=== PATIENT | female | born 1945 | race Caucasian/White ===

== ENCOUNTER 2024-03-26 16:09 | Inpatient (IN) | payer MEDICARE, MEDICAID, SELFPAY ==
--- NOTE | 2024-03-26 16:13 | XRR_ITS ---
PROCEDURE INFORMATION: Exam: XR Right Hip Exam date and time: 03/26/2024 5:14 PM Age: 79 years old Clinical indication: Right hip; Patient HX: RT hip pain post fall TECHNIQUE: Imaging protocol: Radiologic exam of the right hip. Views: 1 view hip with pelvis when performed. COMPARISON: No relevant prior studies available. FINDINGS: Bones/joints: Subcapital right hip fracture with foreshortening. Soft tissues: Unremarkable. XR/XR hip RT 2-3V wo/w pel* [id number] IMPRESSION: Subcapital right hip fracture with foreshortening.
[2024-03-26 16:15] VITALS: BP 141/61; PULSE 68; RESP 18; TEMP 36.4; O2SAT 100; BMI 38.2
--- NOTE | 2024-03-26 16:34 | ED_ITS ---
HPI - Fall 2 General: Chief Complaint: Fall Stated Complaint: right hip pain s/p fall Time Seen by Provider: 03/26/24 16:11 History of Present Illness: 79-year-old female who presents emergenc y room by ambulance with right hip pain after fall. She says she slipped on some water and fell onto her right hip. She did not hit her head. She has no other injuries. She is complaining of pain in the right hip and severe pain with any sort of movement. Appears to have some shortening and rotation of that leg compared to the left. Neurovascularly intact. No altered mental status. No chest pain. No focal motor deficits. No abdominal pain. No vomiting. Related Data Allergies Allergy/AdvReac Type Severity Reaction Status Date / Time codeine Allergy Unknown Verified 03/26/24 16:15 Review of Systems 2 Narrative: Constitutional symptoms: Negative except as documented in HPI. Skin symptoms: Negative except as documented in HPI. Eye symptoms: Negative except as documented in HPI. ENMT symptoms: Negative except as documented in HPI. Respiratory symptoms: Negative except as documented in HPI. Cardiovascular symptoms: Negative except as documented in HPI. Gastrointestinal symptoms: Negative except as documented in HPI. Genitourinary symptoms: Negative except as documented in HPI. Musculoskeletal symptoms: Negative except as documented in HPI. Neurologic symptoms: Negative except as documented in HPI. Psychiatric symptoms: Negative except as documented in HPI. Endocrine symptoms: Negative except as documented in HPI. Physical Exam 2 Narrative: EXAM NARRATIVE: General: Alert, no acute distress. Skin: Warm, dry. Head: Normocephalic, atraumatic. Neck: Supple, trachea midline. Eye: Extraocular movements are intact. Ears, nose, mouth and throat: mucosa moist. Cardiovascular: Regular, Normal peripheral perfusion. Respiratory: Lungs are clear to auscultation, respirations are non-labored, breath sounds are equal, Symmetrical chest wall expansion. Gastrointestinal: Soft, Nontender, Non distended Musculoskeletal: Shortening and rotation of the right leg. Severe pain with any movement of the right leg and the right hip. Neurological: Alert and oriented, No focal neurological deficit observed. Psychiatric: Cooperative, appropriate mood & affect. Course 2 Vital Signs: Vital signs: Vital Signs Temperature 97.5 F L 03/26/24 16:15 Pulse Rate 74 03/26/24 16:54 Respiratory Rate 18 03/26/24 16:54 Blood Pressure 163/54 01/05/25 16:54 Pulse Oximetry 99 03/26/24 16:54 Oxygen Delivery Me thod Room Air 03/26/24 16:54 MDM - Fall Medical Decision Making X-ray of the right hip and pelvis. Impacted femoral neck fracture. No obvious pelvic fractures. This was reviewed and interpreted by myself the emergency room physician. I also reviewed the radiology report. Chest x-ray: No acute process. No infiltrate. No pneumothorax. This was reviewed and interpreted by myself the emergency room physician. I also reviewed the radiology report. Presurgical workup was initiated including an EKG and basic lab work with coags and urinalysis. A Bates catheter was placed. Consultation: I spoke with Dr. Bee who recommends admission to the hospitalist service and she will consult and see the patient and plan on surgery Consultation: I spoke with the hospitalist on-call who is agreed to admission. Assessment and plan: Hip fracture Fall ?Dilaudid for pain. Bates catheter placed. -I discussed the patient with the hospitalist on-call who is admitting the patient. - Discussed findings and plan with patient. Answered any questions. - All laboratory values were reviewed and interpreted personally by myself, the ER physician - All imaging was reviewed and interpreted personally by myself, the ER physician. - Evaluation and treatment of this problem were appropriate in the emergency setting Lab Data 03/26/24 17:58 Radiology Impressions Hip/Pelvis X-Ray 03/26/24 16:13 IMPRESSION: Subcapital right hip fracture with foreshortening. Chest X-Ray 03/26/24 17:35 IMPRESSION: No acute findings. Laboratory Results Sodium 139 mmol/L (136-145) 03/26/24 17:58 Potassium 4.4 mmol/L (3.5-5.1) 03/26/24 17:58 Chloride 104 mmol/L (98-107) 03/26/24 17:58 Carbon Dioxide 25 mmol/L (22-29) 03/26/24 17:58 Anion Gap 14.4 (5-19) 03/26/24 17:58 BUN 18 mg/dL (8-23) 03/26/24 17:58 Creatinine 0.6 mg/dL (0.5-0.9) 03/26/24 17:58 GFR Calculation Not Reportable 03/26/24 17:58 Glucose 117 mg/dL (65-115) H 03/26/24 17:58 Calculated Osmolality 291 mOsm/kg (285-295) 03/26/24 17:58 Calcium 9.0 mg/dL (8.5-10.5) 03/26/24 17:58 Total Bilirubin 0.5 mg/dL (0.15-1.2) 03/26/24 17:58 AST 25 U/L (0-32) 03/26/24 17:58 ALT 15 U/L (0-33) 03/26/24 17:58 Alkaline Phosphatase 145 U/L (35-105) H 03/26/24 17:58 Total Protein 7.1 g/dL (6.6-8.7) 03/26/24 17:58 Albumin 3.8 g/dL (3.5-5.2) 03/26/24 17:58 Globulin 3.3 g/dL (1.3-4.6) 03/26/24 17:58 All radiology interpretation(s) finalized by discharge Discharge Plan Discharge Patient Disposition: Admitted As Inpatient Clinical Impression: Closed hip fracture Condition: Stable Coding Level of Care Code ED Director [place] for Flo Jacobson
[2024-03-26 16:54] VITALS: BP 163/54; PULSE 74; RESP 18; O2SAT 99
[2024-03-26] MEDS: ondansetron 2 mg/ML SDV 2 mL 4 MG IVP (17:07)
[2024-03-26] MEDS: HYDROmorphone 1 mg/mL INJ 1 mL 0.5 MG IVP (17:07)
--- NOTE | 2024-03-26 17:35 | XRR_ITS ---
PROCEDURE INFORMATION: Exam: XR Chest Exam date and time: 03/26/2024 5:19 PM Age: 79 years old Clinical indication: Pre-operative exam; Respiratory screening exam; Patient HX: RT hip FX; Pre op high risk procedure TECHNIQUE: Imaging protocol: Radiologic exam of the chest. Views: 1 view. COMPARISON: No relevant prior studies available. FINDINGS: Lungs: Unremarkable. No consolidation. Pleural spaces: Unremarkable. No pleural effusion. No pneumothorax. Heart/Mediastinum: Unremarkable. No cardiomegaly. Bones/joints: Unremarkable. XR/XR chest 1V [id number] IMPRESSION: No acute findings.
--- NOTE | 2024-03-26 17:57 | ECG_ITS ---
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 Measurements Intervals [place] Rate: 75 P: 66 MO: 151 QRS: 96 QRSD: 99 T: 17 QT: 384 QTc: 431 Interpretive Statements SINUS RHYTHM WITH MARKED SINUS ARRHYTHMIA BORDERLINE RIGHT AXIS DEVIATION [QRS AXIS > 90] NONSPECIFIC ST & T-WAVE ABNORMALITY No previous ECG available for comparison Electronically Signed On 03-27-2024 17:12:02 PROJECT ARCHITECT by Sim Alex M.D. [email or web address]
[2024-03-26 18:21] LABS: Alanine Aminotransferase 15 U/L (0-33); Albumin Level 3.8 g/dL (3.5-5.2); Alkaline Phosphatase 145 U/L (35-105); Blood Urea Nitrogen 18 mg/dL (8-23); Carbon Dioxide 25 mmol/L (22-29); Chloride 104 mmol/L (98-107); Globulin 3.3 g/dL (1.3-4.6); Glucose 117 mg/dL (65-115); Osmolality Calculated 291 mOsm/kg (285-295); Sodium 139 mmol/L (136-145); Total Bilirubin 0.5 mg/dL (0.15-1.2); Total Protein 7.1 g/dL (6.6-8.7)
[2024-03-26 18:22] LABS: Anion Gap 14.4 (5-19); Aspartate Amino Transferase 25 U/L (0-32); Potassium 4.4 mmol/L (3.5-5.1)
--- NOTE | 2024-03-26 19:02 | P.HP_ITS ---
Providers/Chief Complaint 2 Chief Complaint: right hip pain s/p fall History of Present Illness Omayra Alfredo is a 79 year old female who has not seen a doctor in a long time stating that she does not like to see a doctor, does not like to take medications, she is physically active taking care of 100 continue PICC, multiple rabbits, cats and 1 dog, stating that she is very active all day, never had any history of diabetes, coronary stents, stroke, she is complaining of lower back pain and knee pain otherwise no other medical issues presenting after falling in her kitchen. Patient is stating that she probably fell secondary to slippery floor/water on the kitchen floor. She fell on the concrete slab. She is denying palpitation, chest pain, she is hypertensive, hemodynamically stable currently on room air. Bates catheter has been placed. Review of Systems 2 Const: Denies: fever(s) Eyes: Denies: change in vision ENMT: Denies: throat pain Card: Denies: chest pain Resp: Denies: dyspnea GI: Denies: abdominal pain Musc: Reports: back pain and extremity pain Medications/Allergies Allergies Allergy/AdvReac Type Severity Reaction Status Date / Time codeine Allergy Unknown Verified 03/26/24 16:15 PFSH Acute 2 PFSH: Medical History No pertinent past medical history Surgical History No pertinent past surgical history Vitals/I&O/Wt Last Vital Signs Temp 97.5 F L 03/26/24 16:15 Pulse 74 03/26/24 16:54 Resp 18 03/26/24 16:54 BP 163/54 03/26/24 16:54 Pulse Ox 99 03/26/24 16:54 O2 Del Method Room Air 03/26/24 16:54 03/26/24 03/26/24 03/26/24 06:59 14:59 22:59 Intake Total 0 / 0 Balance 0 / 0 Weight last 48 hrs Weight 104.326 kg Physical Exam 2 Narrative: Patient is laying supine Labial emotionally stating that she is missing her 200 animals and she is worried about the care Stating that she does not like hospitals doctors or medications Hypertensive No active pain Bates cath in place Low extremity nonpitting edema Abdomen soft S1, S2 GCS 15 nonfocal neuroexam Urinary Catheter Management: Bates: Cath Placed During This Visit: yes Reason for Continuing Indwelling Catheter: Other Urinary Catheter Date of Insertion: 03/26/24 Urinary Catheter Time of Insertion: 18:59 Data 03/26/24 19:17 03/26/24 17:58 A&P Assessment and plan (1) Closed hip fracture: (2) Hypertension: Plan Right hip fracture Ground-level fall Mechanical fall Patient has not seen a PCP in 6 years Add Motifene for hypertension Check D-dimer hemoglobin A1c, B12 and TSH Will request echo Patient is physically active stating that she takes care of [address] Baxter is planning to intervene on Wednesday I will let her have diet tonight and give her DVT prophylaxis Full code Cardiac diet Bates catheter in place Attestations 2 Medical Necessity Statement*: More than 2 midnights anticipated Diagnoses Closed hip fracture S72.009A Hypertension I10
[2024-03-26 19:08] LABS: Bilirubin Urine Negative (Negative); Blood Urine Negative (Negative); Glucose Urine UA Negative (Normal); Ketones Urine Trace (Negative); Leukocyte Esterase Urine Negative (Negative); Nitrate Urine Negative (Negative); Protein Urine Trace (Negative); Urine Appearance Clear (CLEAR); Urine Color Dark Yellow (Yellow)
[2024-03-26 19:11] LABS: Bacteria Urine None Seen /hpf; Hyaline Casts Urine 9.91 /lpf; RBC Urine 0-2 /hpf (0-2); Squamous Epithelial Cell Urine 0-5 /hpf (0-5); WBC Urine 0-5 /hpf (0-5)
[2024-03-26 19:28] LABS: Basophils % 0.3 %; Eosinophils % 0.2 %; Lymphocytes # 1.1 10^3/uL (0.8-4.8); Lymphocytes % 9.2 %; Mean Corpuscular HGB Conc 30.7 g/dL (30-55); Mean Corpuscular Hemoglobin 27.2 pg (27-33); Mean Corpuscular Volume 88.4 fl (85-98); Mean Platelet Volume 8.8 fL (7.4-10.4); Monocytes # 0.7 10^3/uL (0.2-0.9); Monocytes % 5.6 %; Neutrophils # 9.91 10^3/uL (1.8-7.7); Neutrophils % 84.2 %; Nucleated Red Blood Cells % 0 %; Platelet Count 229 10^3/cmm (157-399); Red Blood Count 4.64 10^6/uL (3.85-5.65); Red Cell Distribution Width 13.9 % (12.1-15.1); White Blood Count 11.77 10^3/uL (3.29-11.43)
[2024-03-26 19:38] LABS: Amorphous Sediment Urine TRACE /hpf; Mucus Urine 3+ /hpf; UA Slide Review UA Slide Review Perf
[2024-03-26 19:47] LABS: INR 1.02 (0.8-1.2)
[2024-03-26 20:06] LABS: Estmated Average Glucose 108; Hemoglobin A1C 5.4 % (4.0-6.0)
[2024-03-26 20:11] LABS: Partial Thromboplastin Time 26.6 SECONDS (23.9-36.7)
[2024-03-26 20:17] LABS: D Dimer 12.48 ug/mLFEU (0-0.59)
[2024-03-26 20:22] LABS: Thyroid Stimulating Hormone 3.12 uIU/mL (0.27-4.20); Vitamin B12 203 pg/mL (232-1245)
--- NOTE | 2024-03-26 20:30 | P.CONIM_ITS ---
Providers/Reason For Consult 2 Consulting Physician/Specialty*: Bernice Bee MD Reason for Consult*: Displaced right subcapital hip fracture Attending Physician: Michelle Grider MD Primary Care Provider: Dr. Humaira Mckee History of Present Illness History of Present Illness Omayra Alfredo is a 79 year old female who was brought to the emergency department by ambulance. She had right hip pain after a fall in her kitchen when she slipped on water and fell directly onto her right hip. She had severe pain in the right hip and inability to ambulate. The leg was also shortened and externally rotated. She was neurologically intact after the fall. She denied any reason for the fall other than a slip in water. Upon presentation and x- ray, the patient was found to have a displaced subcapital right hip fracture. Review of Systems 2 Narrative: Constitutional symptoms: Negative except as documented in HPI. Skin symptoms: Negative except as documented in HPI. Eye symptoms: Negative except as documented in HPI. ENMT symptoms: Negative except as documented in HPI. Respiratory symptoms: Negative except as documented in HPI. Cardiovascular symptoms: Negative except as documented in HPI. Gastrointestinal symptoms: Negative except as documented in HPI. Genitourinary symptoms: Negative except as documented in HPI. Musculoskeletal symptoms: Negative except as documented in HPI. Neurologic symptoms: Negative except as documented in HPI. Psychiatric symptoms: Negative except as documented in HPI. Endocrine symptoms: Negative except as documented in HPI. Const: Denies: fever(s) Eyes: Denies: change in vision ENMT: Denies: throat pain Card: Denies: chest pain Resp: Denies: dyspnea GI: Denies: abdominal pain Musc: Reports: back pain and extremity pain Medications/Allergies Home Medications Medication Instructions Recorded Confirmed Last Taken Type No Known Home Medications 03/27/24 03/27/24 Unknown History Allergies Allergy/AdvReac Type Severity Reaction Status Date / Time codeine Allergy Unknown Verified 03/26/24 16:15 Current Medications Generic Name Dose Route Start Last Admin Trade Name Freq PRN Reason Stop Dose Admin Enoxaparin Sodium 40 mg 03/26/24 19:35 03/26/24 21:08 Enoxaparin 40 Mg/0.4 Ml Syringe SUBCUT 40 mg DAILY LESLEY Administration Morphine Sulfate 15 mg 03/26/24 19:30 03/26/24 21:08 Morphine Ir 15 Mg Tablet PO 15 mg Q6H PRN Administration MODERATE PAIN PFSH Acute 2 PFSH: Medical History No pertinent past medical history Surgical History No pertinent past surgical history Vitals/I&O/Wt Last Vital Signs Temp 97.5 F L 03/26/24 16:15 Pulse 74 03/26/24 16:54 Resp 16 03/26/24 21:08 BP 163/54 03/26/24 16:54 Pulse Ox 99 03/26/24 21:08 O2 Del Method Room Air 03/26/24 22:44 03/26/24 03/26/24 03/27/24 14:59 22:59 06:59 Intake Total 480 / 480 Output Total 400 / 400 Balance 80 / 80 Weight last 48 hrs Weight 202 lb 9.6 oz Weight 230 lb Physical Exam 2 Const: COMMON NORMALS: no acute distress, average body habitus, patient oriented x3 and alert GENERAL APPEARANCE: cooperative and comfortable O RIENTATION/CONSCIOUSNESS: Yes awake HENMT: COMMON NORMALS: normocephalic and atraumatic HEAD & SCALP: n ormocephalic and atraumatic Eye: GENERAL EYE: appearance normal, both eyes and all related structures Chest: COMMONS NORMALS: normal inspection of the chest Resp: COMMON NORMALS: normal respiratory effort EFFORT & INSPECTION: Yes able to speak in complete sentences and Yes symmetric chest movement Extremity: RIGHT LOWER EXTREMITY: Yes hip joint (There is no significant ecchymosis or swelling) Right hip: Yes palpation (Tenderness to palpation), Yes ROM (Not evaluated) and Yes neurovascular exam (Intact distally) Neuro: COMMON NORMALS: patient oriented x3 SENSORIUM/ORIENTATION: Yes alert Psych: COMMON NORMALS: mental status grossly normal APPEARANCE: Yes grossly normal ATTITUDE: Yes calm and Yes engaged ATTENTION/CONCENTRATION: Yes attention grossly intact Skin: COMMON NORMALS: no rashes or lesions noted GENERAL SKIN EXAM: no rashes or lesions noted Urinary Catheter Management: Bates: Cath Placed During This Visit: yes Reason for Continuing Indwelling Catheter: Other Urinary Catheter Date of Insertion: 03/26/24 Urinary Catheter Time of Insertion: 18:59 Data 03/27/24 03:11 03/27/24 03:11 Xray Ortho: My impression: I have personally evaluated the patient's imaging studies. These include an AP pelvis as well as isolated AP and lateral of the patient's right hip. AP pelvis demonstrates shortening of the right lower extremity with a subcapital displaced right hip fracture. There is no other significant pathology visualized. Isolated AP demonstrates significant superior displacement of the femoral shaft. The lateral is compromised by the patient's body habitus. A&P Assessment and plan (1) Subcapital fracture of right hip: Patient presented to the emergency department after slip and fall in water at home. At time of presentation to the emergency department, she was unable to ambulate and complained of significant right hip pain. The leg was shortened and externally rotated consistent with hip fracture. I have personally reviewed the imaging studies and these demonstrate a displaced shortened angulated right subcapital hip fracture. Patient was seen following admission. Discussion was undertaken with the patient regarding the appropriate treatment for this fracture. She is anxious to get home to take care of her animals, but I have advised her that she will need to have some restrictions following the surgical procedure. Risks and complications of surgery were discussed with her. Plans are made for her surgery March 28. She is undergoing further optimization with the medical service. Qualifiers: Encounter type: initial encounter Fracture type: closed Qualified Code(s): S72.011A - Unspecified intracapsular fracture of right femur, initial encounter for closed fracture Consult Attestations 2 Medical Necessity Statement: Per hospitalist team Coding Level of Care Code Acute Code for [facility] Diagnoses Closed subcapital fracture of right femur, initial encounter S72.011A Encounter type: initial encounter Fracture type: closed
[2024-03-26 21:08] VITALS: RESP 16; O2SAT 99
[2024-03-26] MEDS: enoxaparin 40 mg/0.4 mL Syringe SUBCUT (21:08)
[2024-03-26] MEDS: morphine IR 15 mg Tablet PO (21:08)
--- NOTE | 2024-03-26 21:38 | CTR_ITS ---
PROCEDURE INFORMATION: Exam: CTA Chest With Contrast Exam date and time: 03/26/2024 10:25 PM Age: 79 years old Clinical indication: Abnormal findings; Abnormal diagnostic tests; Elevated d-dimer; Shortness of breath; Patient HX: SOB with hypoxia. Dimer of 12.5. Patient sustained acute hip fracture earlier today. TECHNIQUE: Imaging protocol: Computed tomographic angiography of the chest with contrast. Exam focused on the arteries. 3D rendering (Not supervised by radiologist): MIP and/or 3D reconstructed images were created by the technologist. Radiation optimization: All CT scans at this facility use at least one of these dose optimization techniques: automated exposure control; mA and/or kV adjustment per patient size (includes targeted exams where dose is matched to clinical indication); or iterative reconstruction. Contrast material: OMNI 350; Contrast volume: 78 ml; Contrast route: INTRAVENOUS (IV); COMPARISON: CR XR chest 1V [id number] 03/26/2024 5:19 PM RADIATION DOSE METRICS: Total DLP (mGy-cm): 394.67 FINDINGS: Pulmonary arteries: There is no evidence of filling defects within the pulmonary arterial circulation to suggest pulmonary embolism. Aorta: There is some atherosclerotic calcification of the descending thoracic aorta. There is no thoracic aortic aneurysm or dissection. Lungs: There is a calcified granuloma in the left lower lobe. No acute infiltrate is identified there is mild dependent atelectasis at the lung bases. Pleural spaces: Unremarkable. No pneumothorax. No pleural effusion. Heart: Unremarkable. No cardiomegaly. No pericardial effusion. Coronary arteries: There is mild atherosclerotic calcification of the coronary arteries. Lymph nodes: There are calcified hilar and mediastinal lymph nodes in keeping with old granulomatous disease. There are small paratracheal lymph nodes but no adenopathy. Bones/joints: The thoracic spine demonstrates moderate degenerative changes at multiple levels. There is no evidence of acute fracture. Soft tissues: Unremarkable. CT/CT angio chest PE protcl [id number] IMPRESSION: No evidence of pulmonary embolism.
[2024-03-26] MEDS: iohexol 350 mg/mL 500 mL Btl (per mL) IV (22:28)
[2024-03-27] VITALS (7 sets, daily range): BP systolic 103–129; BP diastolic 48–74; PULSE 68–74; RESP 16–22; TEMP 36.8–37.1; O2SAT 92–95
[2024-03-27 04:26] LABS: Basophils % 0.5 %; Eosinophils # 0.1 10^3/uL (0.0-0.8); Eosinophils % 0.7 %; Hematocrit 39.3 % (36-47); Lymphocytes # 1.8 10^3/uL (0.8-4.8); Lymphocytes % 23.1 %; Mean Corpuscular Hemoglobin 27.6 pg (27-33); Mean Corpuscular Volume 88.9 fl (85-98); Mean Platelet Volume 9.8 fL (7.4-10.4); Monocytes # 0.6 10^3/uL (0.2-0.9); Monocytes % 8.5 %; Neutrophils # 5.05 10^3/uL (1.8-7.7); Neutrophils % 66.8 %; Nucleated Red Blood Cells % 0 %; Platelet Count 236 10^3/cmm (157-399); Red Blood Count 4.42 10^6/uL (3.85-5.65); Red Cell Distribution Width 13.9 % (12.1-15.1); White Blood Count 7.56 10^3/uL (3.29-11.43)
[2024-03-27] MEDS: morphine IR 15 mg Tablet PO ×2 (04:33→13:47)
[2024-03-27 04:48] LABS: Blood Urea Nitrogen 14 mg/dL (8-23); Calcium 8.8 mg/dL (8.5-10.5); Carbon Dioxide 24 mmol/L (22-29); Chloride 106 mmol/L (98-107); Creatinine Clr Calc Pharmacy 64.9227; Glucose 104 mg/dL (65-115); Magnesium 2.1 mg/dL (1.7-2.3); Osmolality Calculated 289 mOsm/kg (285-295); Sodium 139 mmol/L (136-145)
[2024-03-27] MEDS: enoxaparin 40 mg/0.4 mL Syringe SUBCUT (08:40)
[2024-03-27] MEDS: sennosides-docusate Tablet 1 TAB PO (08:40)
[2024-03-27] MEDS: amlodipine 5 mg Tablet PO (08:40)
[2024-03-27] MEDS: pantoprazole 40 mg SDV IVP (08:41)
--- NOTE | 2024-03-27 09:21 | PC.CHAP ---
Pastoral Care Encounter/Spiritual Assessment Type of Contact [] Declined teenage babysitter visit [] Patient/Family/Request visit [] Outpatient visit [] Follow-up visit [] Physician referral [] Code/Alert [x] Routine visit [] Staff referral [] Actively dying [] Patient sleeping [] Family support [] [] Out of room [] Palliative care [] [x] Receiving care in room [] Pre-surgical visit [] Trauma [] Long length of stay [] ICU visit [] Other: Relational/Emotional Strength [] Patient feels connected with others/family/visitors/staff [] Distress [] Loneliness/isolation [] Abandonment Spirituality of Patient [] Person of Margret [] Attends Jewish of their Margret [] Believes in Prayer [] Reads Bible or Mosque materials [] There are Spiritual issues to be addressed Greenskeeper Interventions [x] Prayer [] Active listening [] Non-anxious presence [] Spiritual/emotional support [] Crisis/trauma care [] Spiritual counseling [] Bereavement support [] Provided bereavement packet [] Provided Bible/devotional materials [] Provided toy/stuffed animal, coloring book to patient or family member [] Provided Communion [] Anointing/[place] [] Salvation [] Completed spiritual assessment [] Other: Impact on Illness or Injury [] Angry [] Fearful [] Anxious [] Often cries [] Exhaustion [] Unable to work [] Unable to attend muslim [] Unable to walk/stand [] Unable to read [] Unable to drive [] Unable to eat/drink [] Unable to sleep [] Unable to be with family [] Patient intubated [] Other: Summary Time spent with patient
--- NOTE | 2024-03-27 13:56 | P.PN_ITS ---
Subjective 2 Subjective: Patient is seen in her room. Surgical discussion is undertaken with her. Risks and complications of the surgery are discussed. Medications: Reviewed: Yes Vitals/I&O/Wt Last Vital Signs Temp 98.7 F 03/27/24 12:00 Pulse 69 03/27/24 12:00 Resp 16 03/27/24 13:47 BP 118/72 03/27/24 12:00 Pulse Ox 95 03/27/24 13:47 O2 Del Method Room Air 03/27/24 12:00 03/26/24 03/27/24 03/27/24 22:59 06:59 14:59 Intake Total 480 / 480 360 / 840 Output Total 400 / 400 600 / 1000 Balance 80 / 80 -240 / -160 Weight last 48 hrs Weight 202 lb 14.4 oz Weight 202 lb 9.6 oz Weight 230 lb Physical Exam 2 Const: COMMON NORMALS: no acute distress, average body habitus, patient oriented x3 and alert GENERAL APPEARANCE: cooperative and comfortable O RIENTATION/CONSCIOUSNESS: Yes awake HENMT: COMMON NORMALS: normocephalic and atraumatic HEAD & SCALP: n ormocephalic and atraumatic Eye: GENERAL EYE: appearance normal, both eyes and all related structures Chest: COMMONS NORMALS: normal inspection of the chest Resp: COMMON NORMALS: normal respiratory effort EFFORT & INSPECTION: Yes able to speak in complete sentences and Yes symmetric chest movement Extremity: RIGHT LOWER EXTREMITY: Yes hip joint (Patient remains neurologically intact.) Right hip: Yes inspection (No significant bruising.), Yes ROM (Not evaluated due to fracture.) and Yes neurovascular exam (Intact distally.) Neuro: COMMON NORMALS: patient oriented x3 SENSORIUM/ORIENTATION: Yes alert Psych: COMMON NORMALS: mental status grossly normal APPEARANCE: Yes grossly normal ATTITUDE: Yes calm and Yes engaged ATTENTION/CONCENTRATION: Yes attention grossly intact Skin: COMMON NORMALS: no rashes or lesions noted GENERAL SKIN EXAM: no rashes or lesions noted Urinary Catheter Management: Bates: Cath Placed During This Visit: yes Reason for Continuing Indwelling Catheter: Required Immobilization for Trauma or Surgery or Anesthesia Urinary Catheter Date of Insertion: 03/26/24 Urinary Catheter Time of Insertion: 18:59 Data 03/28/24 04:57 03/28/24 04:57 A&P Assessment and plan (1) Subcapital fracture of right hip: Patient presented to the emergency department after slip and fall in water at home. At time of presentation to the emergency department, she was unable to ambulate and complained of significant right hip pain. The leg was shortened and externally rotated consistent with hip fracture. I have personally reviewed the imaging studies and these demonstrate a displaced shortened angulated right subcapital hip fracture. Patient was seen by cardiology and evaluated. Hospitalist admitted to optimize the patient for surgical intervention. Patient was seen in her room, and discussion was undertaken regarding appropriateness and plans for surgery. The surgical procedure was explained to her. Risks and complications were discussed. Essentially, while in the room, she was consented for the surgical procedure. Plans are made for surgery tomorrow. Qualifiers: Encounter type: initial encounter Fracture type: closed Qualified Code(s): S72.011A - Unspecified intracapsular fracture of right femur, initial encounter for closed fracture Attestations 2 Medical Necessity Statement*: Per hospitalist team. Coding Level of Care Code Acute Code for [facility] Diagnoses Closed subcapital fracture of right femur, initial encounter S72.011A Encounter type: initial encounter Fracture type: closed
--- NOTE | 2024-03-27 17:04 | P.PN_ITS ---
Subjective 2 Subjective: Planned OR intervention tomorrow. Pain is currently controlled. Vitals/I&O/Wt Last Vital Signs Temp 98.4 F 03/27/24 16:00 Pulse 68 03/27/24 16:00 Resp 18 03/27/24 16:00 BP 128/72 03/27/24 16:00 Pulse Ox 92 03/27/24 16:00 O2 Del Method Room Air 03/27/24 16:00 03/27/24 03/27/24 03/27/24 06:59 14:59 22:59 Intake Total 360 / 840 Output Total 600 / 1000 Balance -240 / -160 Weight last 48 hrs Weight 92.034 kg Weight 91.898 kg Weight 104.326 kg Physical Exam 2 Narrative: General: No acute distress, AO x3 HEENT: PERRLA, pupils bilaterally equal and reactive, pallors not present Chest: Normal vesicular breath sounds, no added sounds, equal good air entry bilaterally CVS: S1-S2 regular, no murmurs, no tachycardia, no gallops, no rubs Abdomen: Soft, nontender, no organomegaly, bowel sounds present Neuro: No focal deficits, no facial deformity, AO x3, power 5/5 in all limbs Urinary Catheter Management: Bates: Cath Placed During This Visit: yes Reason for Continuing Indwelling Catheter: Required Immobilization for Trauma or Surgery or Anesthesia Urinary Catheter Date of Insertion: 03/26/24 Urinary Catheter Time of Insertion: 18:59 Data 03/27/24 03:11 03/27/24 03:11 A&P Assessment and plan (1) Closed hip fracture: (2) Hypertension: Plan Right hip fracture Ground-level fall Mechanical fall Patient has not seen a PCP in 6 years Add Motifene for hypertension Check D-dimer hemoglobin A1c, B12 and TSH Will request echo Patient is physically active stating that she takes care of [address] Baxter is planning to intervene on Wednesday I will let her have diet tonight and give her DVT prophylaxis Full code Cardiac diet Bates catheter in place March 27, 2024. CTA of the chest negative for PE. Lower extremity Doppler negative. D-dimer likely elevated related to acute injury. Echocardiogram was ordered, currently pending. Plan for or intervention tomorrow. No contraindication from medicine standpoint currently to proceed with surgery tomorrow. Pain is currently well- controlled. Attestations 2 Medical Necessity Statement*: Planned OR intervention tomorrow Coding Level of Care Code Acute Code for Chg Fwd Moderate MDM includes number and complexity of problems actively addressed during encounter, amount and/or complexity of data reviewed/ordered and described risk of complication, morbidity or mortality of management as documented Diagnoses Closed hip fracture S72.009A Hypertension I10
--- NOTE | 2024-03-27 19:30 | USCV_ITS ---
Omayra Alfredo Age: 79 Gender: F : 1945 Exam Date: 03/27/2024 12:41 Ordering Phys: Ratna Her MD Technologist: [place] [facility] [place]: pre op BP: 127 / 79 HR: 64 Rhythm: Sinus Technical Quality: Adequate MEASUREMENTS (Male / Female) Normal Values 2D ECHO LVOT Diameter 2.1 cm LV Ejection Fraction MOD 4C 57.8 % LV Ejection Fraction MOD 2C 72.3 % LV Ejection Fraction 2C AL 73.8 % LA Diameter 3.7 cm RA Systolic Volume 4C AL 61.4 ml RA Systolic Volume 4C MOD 61.0 ml LA Sys Volume AL 39.6 cm cubed LA Sys Volume Index AL 17.4 cm cubed/m squared Aorta at Sinotubular Diameter 2.2 cm IVC Diameter 2.6 cm M-MODE LA Ao Ratio MM 1.4 AV Cusp Separation MM 2.3 cm DOPPLER AV Peak Velocity 159.0 cm/s LVOT Peak Velocity 117.0 cm/s AV Area Cont Eq vti 2.7 cm squared AV Area Cont Eq pk 2.5 cm squared MV Peak Velocity 103.0 cm/s MV Area PHT 4.2 cm squared Mitral E to A Ratio 1.4 TR Peak Velocity 283.0 cm/s TR Peak Gradient 32.0 mmHg TR Mean Velocity 195.0 cm/s TR Mean Gradient 17.9 mmHg TR Velocity Time Integral 79.9 cm PV Peak Velocity 143.0 cm/s FINDINGS Left Ventricle Normal left ventricular size, systolic function and wall thickness, with no regional wall motion abnormalities. Left ventricular ejection fraction is estimated at 55 %. Grade I/IV diastolic dysfunction (abnormal relaxation filling pattern), normal to mildly elevated filling pressures. Right Ventricle The right ventricle is normal in size and function. Right Atrium The right atrium is normal in size. Left Atrium The left atrium is normal in size. Mitral Valve Mildly thickened mitral valve. Moderate mitral annular calcification. No mitral valve stenosis. Mild mitral valve regurgitation. Aortic Valve Mild aortic valve calcification. No aortic valve stenosis. Trace aortic valve regurgitation. Tricuspid Valve Structurally normal tricuspid valve without significant stenosis or regurgitation. Pulmonary artery systolic pressure is normal. Pulmonic Valve Structurally normal pulmonic valve without significant stenosis. There is no pulmonic regurgitation. Pericardium Normal pericardium without effusion. Aorta Normal ascending aorta dimension. IVC The inferior vena cava appears normal. CONCLUSIONS Normal left ventricular size, systolic function and wall thickness, with no regional wall motion abnormalities. Left ventricular ejection fraction is estimated at 55 %. Grade I/IV diastolic dysfunction (abnormal relaxation filling pattern), normal to mildly elevated filling pressures. Mild aortic valve calcification. No aortic valve stenosis. Trace aortic valve regurgitation. There is no pericardial effusion. Right atrial pressure is around 5 mm of mercury. Ratna Chatterjee MD (Electronically Signed) Final Date: 27 March 2024 18:26 S
--- NOTE | 2024-03-27 21:38 | USCV_ITS ---
Omayra Alfredo Age: 79 Gender: F : 1945 Exam Date: 03/27/2024 06:37 Ordering Phys: Ratna Her MD Technologist: TRISTON Exam Location: [facility] [place] Indication: Swelling HISTORY: Lower extremity swelling. PROCEDURES: Venous duplex imaging was performed in bilateral lower extremities. The following venous structures were evaluated: common femoral vein, profunda vein, proximal portion of the greater saphenous vein, superficial femoral vein, and the popliteal vein. In addition, the posterior tibial and peroneal trunk were evaluated. Serial compression, augmentation maneuvers, and spectral Doppler flow evaluation were performed. FINDINGS: Normal 2-D Doppler and augmentation and compressibility throughout the lower extremity venous structures. Additional imaging through the proximal calf veins also reveals no thrombus. Limited evaluation of the greater saphenous vein is patent with no thrombus. Complex cystic mass with low level echos and no vascularity measuring 5 x 3 cm in the left popliteal fossa. CONCLUSIONS No DVT bilateral lower extremities. Left popliteal fossa Zimmerman's cyst. Dr. Cait Tavera DO (Electronically Signed) Final Date: 27 March 2024 07:53 S
[2024-03-27] MEDS: HYDROcodone-acetaminophen 5-325 mg Tablet 1 TAB PO (21:52)
[2024-03-28] VITALS (16 sets, daily range): BP systolic 102–157; BP diastolic 56–88; PULSE 57–76; RESP 12–22; TEMP 36.1–37.4; O2SAT 91–99
[2024-03-28 05:37] LABS: Basophils % 0.3 %; Eosinophils # 0.1 10^3/uL (0.0-0.8); Hematocrit 40.1 % (36-47); Lymphocytes # 1.8 10^3/uL (0.8-4.8); Lymphocytes % 26.3 %; Mean Corpuscular HGB Conc 31.2 g/dL (30-55); Mean Corpuscular Volume 89.7 fl (85-98); Mean Platelet Volume 9.7 fL (7.4-10.4); Monocytes # 0.7 10^3/uL (0.2-0.9); Monocytes % 9.6 %; Neutrophils # 4.27 10^3/uL (1.8-7.7); Neutrophils % 62.4 %; Nucleated Red Blood Cells % 0 %; Platelet Count 188 10^3/cmm (157-399); Red Blood Count 4.47 10^6/uL (3.85-5.65); White Blood Count 6.85 10^3/uL (3.29-11.43)
[2024-03-28 06:06] LABS: Alanine Aminotransferase 16 U/L (0-33); Albumin Level 3.4 g/dL (3.5-5.2); Alkaline Phosphatase 150 U/L (35-105); Anion Gap 14.1 (5-19); Aspartate Amino Transferase 23 U/L (0-32); Blood Urea Nitrogen 10 mg/dL (8-23); Calcium 8.8 mg/dL (8.5-10.5); Carbon Dioxide 27 mmol/L (22-29); Chloride 105 mmol/L (98-107); Creatinine Clr Calc Pharmacy 64.9725; Globulin 2.7 g/dL (1.3-4.6); Glucose 112 mg/dL (65-115); Osmolality Calculated 294 mOsm/kg (285-295); Potassium 4.1 mmol/L (3.5-5.1); Sodium 142 mmol/L (136-145); Total Bilirubin 1.3 mg/dL (0.15-1.2); Total Protein 6.1 g/dL (6.6-8.7)
[2024-03-28] MEDS: morphine 4 mg/mL SDV 1 mL 2 MG IVP (08:01)
[2024-03-28] MEDS: amlodipine 5 mg Tablet PO (08:02)
--- NOTE | 2024-03-28 09:13 | PC.NURSE ---
Pt to the OR
--- NOTE | 2024-03-28 09:13 | PC.CHAP ---
Pastoral Care Encounter/Spiritual Assessment Type of Contact [] Declined health and wellness coordinator visit [] Patient/Family/Request visit [] Outpatient visit [] Follow-up visit [] Physician referral [] Code/Alert [] Routine visit [] Staff referral [] Actively dying [] Patient sleeping [] Family support [] [x] Out of room [] Palliative care [] [] Receiving care in room [] Pre-surgical visit [] Trauma [] Long length of stay [] ICU visit [] Other: Relational/Emotional Strength [] Patient feels connected with others/family/visitors/staff [] Distress [] Loneliness/isolation [] Abandonment Spirituality of Patient [] Person of Margret [] Attends Anabaptism of their Margret [] Believes in Prayer [] Reads Bible or Episcopalian materials [] There are Spiritual issues to be addressed Banana Loader Interventions [] Prayer [] Active listening [] Non-anxious presence [] Spiritual/emotional support [] Crisis/trauma care [] Spiritual counseling [] Bereavement support [] Provided bereavement packet [] Provided Bible/devotional materials [] Provided toy/stuffed animal, coloring book to patient or family member [] Provided Communion [] Anointing/[place] [] Salvation [] Completed spiritual assessment [] Other: Impact on Illness or Injury [] Angry [] Fearful [] Anxious [] Often cries [] Exhaustion [] Unable to work [] Unable to attend roman catholic [] Unable to walk/stand [] Unable to read [] Unable to drive [] Unable to eat/drink [] Unable to sleep [] Unable to be with family [] Patient intubated [] Other: Summary Time spent with patient
[2024-03-28] MEDS: CELEcoxib 200 mg Capsule 400 MG PO (09:21)
[2024-03-28] MEDS: gabapentin 300 mg Capsule PO (09:22)
[2024-03-28] MEDS: acetaminophen 1,000 MG/100 ML PIGGYBACK 400 MG IV ×3 (09:23→23:22)
[2024-03-28] MEDS: sodium chloride 0.9% 1,000 ML 30 ML IV (09:24)
--- NOTE | 2024-03-28 10:14 | P.ANESASSM_ITS ---
Pre-Anesthetic Assessment Height/Weight: Height 1.65 m Weight 92.034 kg Temp Pulse Resp BP Pulse Ox O2 Del Method 98.4 F 66 18 148/74 94 Room Air 03/28/24 09:10 03/28/24 09:10 03/28/24 09:10 03/28/24 09:10 03/28/24 09:10 03/28/24 09:10 Operation Date: 03/28/24 10:35 Proposed Procedures p Hemiarthroplasty Hip Bipolar Arthroplasty(Right) - Bernice Bee MD Familial anesthetic complications: none Was Beta Elizabeth taken within 24 hours: N/A Was Clonidine taken within 24 hours: N/A Last intake: Intake Last Liquid Date 03/27/24 Last Liquid Time 22:00 Last Solid Date 03/27/24 Last Solid Time 18:00 Social No alcohol and No tobacco Exam alert, oriented x 3, clear to auscultation bilaterally and regular rate & rhythm Airway Submandibular: within normal limits Cervical ROM: within normal limits Mallampati: Class II Dentition: chipped CV/HEM Hypertension Neuropsych [place] Anesthetic Plan ASA status: 2 Anesthesia: Regional (specify below) (SAB) Medications/Allergies Home Medications Medication Instructions Recorded Confirmed Last Taken Type No Known Home Medications 03/27/24 03/27/24 Unknown History Allergies Allergy/AdvReac Type Severity Reaction Status Date / Time beef derived (bovine) Allergy ALGY-Hives Verified 03/28/24 09:17 codeine Allergy Unknown Verified 03/26/24 16:15 Current Medications Generic Name Dose Route Start Last Admin Trade Name Freq PRN Reason Stop Dose Admin Hydrocodone Bitart/Acetaminophen 1 tab 03/27/24 17:03 03/27/24 21:52 Hydrocodone-Acetaminophen 5-325 Mg Tablet PO 1 tab Q4H PRN Administration MODERATE PAIN Amlodipine Besylate 5 mg 03/27/24 09:00 03/28/24 08:02 Amlodipine 5 Mg Tablet PO 5 mg DAILY LESLEY Administration Cyanocobalamin 1,000 mcg 03/27/24 09:00 03/28/24 08:06 Cyanocobalamin 1,000 Mcg/Ml Sdv IM Not Given DAILY LESLEY Enoxaparin Sodium 40 mg 03/26/24 19:35 03/28/24 08:02 Enoxaparin 40 Mg/0.4 Ml Syringe SUBCUT Not Given DAILY LESLEY Sodium Chloride 1,000 mls @ 30 mls/hr 03/28/24 09:15 03/28/24 09:24 Sodium Chloride 0.9% IV 03/29/24 09:14 30 mls/hr .Q24H LESLEY Administration Morphine Sulfate 2 mg 03/26/24 19:30 03/28/24 08:01 Morphine 4 Mg/Ml Sdv 1 Ml IVP 2 mg Q4H PRN Administration SEVERE PAIN Pantoprazole Sodium 40 mg 03/28/24 09:00 03/28/24 08:[address] 40 Mg Tablet PO Not Given DAILY LESLEY Senna/Docusate Sodium 1 tab 03/27/24 09:00 03/28/24 08:02 Sennosides-Docusate Tablet PO Not Given DAILY LESLEY PFSH Anesthesia Medical History No pertinent past medical history Surgical History No pertinent past surgical history Data Anesthesia 03/28/24 04:57 03/28/24 04:57 Short CBC 03/26/24 03/27/24 03/28/24 Range/Units 19:17 03:11 04:57 WBC 11.77 H 7.56 6.85 (3.29-11.43) 10^3/uL Hgb 12.60 12.20 12.50 (11.27-16.99) g/dL Hct 41.0 39.3 40.1 (36-47) % MCV 88.4 88.9 89.7 (85-98) fl Plt Count 229 236 188 (157-399) 10^3/cmm Neut % (Auto) 84.2 66.8 62.4 % Neut # (Auto) 9.91 H 5.05 4.27 (1.8-7.7) 10^3/uL BMP 03/26/24 03/27/24 03/28/24 17:58 03:11 04:57 Sodium 139 139 142 Potassium 4.4 4.0 4.1 Chloride 104 106 105 Carbon Dioxide 25 24 27 BUN 18 14 10 Creatinine 0.6 0.5 0.6 Glucose 117 H 104 112 Calcium 9.0 8.8 8.8 Liver Function 03/26/24 03/28/24 Range/Units 17:58 04:57 Total Bilirubin 0.5 1.3 H (0.15-1.2) mg/dL AST 25 23 (0-32) U/L ALT 15 16 (0-33) U/L Alkaline Phosphatase 145 H 150 H (35-105) U/L Albumin 3.8 3.4 L (3.5-5.2) g/dL Urine 03/26/24 Range/Units 18:15 Urine Color Dark yellow A (Yellow) Urine Appearance Clear (CLEAR) Urine pH 5.0 (5-7) Ur Specific Gleason 1.030 (1.005-1.030) Urine Protein Trace A (Negative) Urine Glucose (UA) Negative (Normal) Urine Ketones Trace (Negative) Urine Nitrate Negative (Negative) Urine Bilirubin Negative (Negative) Ur Leukocyte Esterase Negative (Negative) Urine RBC 0-2 (0-2) /hpf Urine WBC 0-5 (0-5) /hpf Coags 03/26/24 19:17 PT 14.20 INR 1.02 APTT 26.6 D-Dimer 12.48 H Cardiac Studies: 2 Echocardiogram 03/27/24
--- NOTE | 2024-03-28 11:27 | PM.MISC ---
Miscellaneous Note Purpose of Documentation: Preoperative visit in the preoperative holding area Note: Patient was seen in the preoperative holding area with her family. Her. Consent was reperformed with the patient. Questions were answered regarding that and consents were signed. Son and housemate were present. Surgery was once again discussed. Questions were answered
[2024-03-28] MEDS: ceFAZolin 2,000 mg SDV 2000 MG IVP ×2 (11:51→21:10)
[2024-03-28] MEDS: tranexamic acid 1,000 mg/10mL SDV 1000 MG IV (12:20)
[2024-03-28] MEDS: VANCOMYCIN ADD-Vantage 1,000 MG VIAL 1000 MG XX (12:30)
[2024-03-28] MEDS: ceFAZolin 1,000 mg SDV 1000 MG IRRIGATION (12:30)
[2024-03-28] MEDS: BUPivacaine liposome 13.3 mg/mL SDV 20 mL 266 MG INFILTRATI (12:31)
[2024-03-28] MEDS: BUPivacaine 0.5% INJ 30 mL INJECTION (12:31)
--- NOTE | 2024-03-28 14:20 | XRR_ITS ---
PROCEDURE INFORMATION: Exam: XR Pelvis Exam date and time: 03/28/2024 2:25 PM Age: 79 years old Clinical indication: Device placement; Other: Zainab; Prior surgery; Surgery date: Post-operative (0-2 days); Additional info: S/P zainab, low ap pelvis TECHNIQUE: Imaging protocol: Radiologic exam of the pelvis. Views: 1 or 2 view. COMPARISON: CR (PELVIS, ) 03/26/2024 5:14 PM FINDINGS: Bones/joints: Complete right hip arthroplasty without complications. No evidence of hardware complications. Specifically, no evidence for hardware loosening or periprosthetic fractures. No acutely displaced fractures. No joint dislocation. No aggressive osseous lesions. 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 Soft tissues: Soft tissue swelling and soft tissue emphysema. XR/XR pelvis 1-2V* [id number] IMPRESSION: 1. Complete right hip arthroplasty without complications. 2. Expected postsurgical soft tissue changes.
--- NOTE | 2024-03-28 14:50 | ANE.PACU2 ---
Inpatient post-anesthesia follow up: Airway intact: Yes Vital signs: Temperature 97.0 F Pulse Rate 70 Respiratory Rate 20 Blood Pressure 130/79 Pulse Oximetry 96 Oxygen Delivery Me thod Room Air Oxygen Flow Rate Fraction of Inspir ed Oxygen Hydration adequate: Yes Nausea and vomiting: No Pain level: 1 Mental status: Baseline
--- NOTE | 2024-03-28 15:26 | PC.NURSE ---
Pt returns from the OR. VSS.
--- NOTE | 2024-03-28 16:05 | P.PN_ITS ---
Subjective 2 Subjective: S/p right hemiarthroplasty today. Pain is currently controlled. Medications: Reviewed: Yes Vitals/I&O/Wt Last Vital Signs Temp 97.4 F L 03/28/24 15:00 Pulse 57 L 03/28/24 15:30 Resp 18 03/28/24 14:53 BP 149/67 03/28/24 15:30 Pulse Ox 95 03/28/24 15:30 O2 Del Method Room Air 03/28/24 15:30 03/28/24 03/28/24 03/28/24 06:59 14:59 22:59 Intake Total 360 / 600 650 / 650 Output Total 700 / 1100 600 / 600 Balance -340 / -500 50 / 50 Weight last 48 hrs Weight 92.034 kg Weight 92.034 kg Weight 91.898 kg Weight 104.326 kg Physical Exam 2 Narrative: General: No acute distress, AO x3 HEENT: PERRLA, pupils bilaterally equal and reactive, pallors not present Chest: Normal vesicular breath sounds, no added sounds, equal good air entry bilaterally CVS: S1-S2 regular, no murmurs, no tachycardia, no gallops, no rubs Abdomen: Soft, nontender, no organomegaly, bowel sounds present Neuro: No focal deficits, no facial deformity, AO x3, power 5/5 in all limbs Urinary Catheter Management: Bates: Cath Placed During This Visit: yes Reason for Continuing Indwelling Catheter: Required Immobilization for Trauma or Surgery or Anesthesia Urinary Catheter Date of Insertion: 03/26/24 Urinary Catheter Time of Insertion: 18:59 Data 03/28/24 04:57 03/28/24 04:57 A&P Assessment and plan (1) Closed hip fracture: (2) Hypertension: Plan Right hip fracture Ground-level fall Mechanical fall Patient has not seen a PCP in 6 years Add Motifene for hypertension Check D-dimer hemoglobin A1c, B12 and TSH Will request echo Patient is physically active stating that she takes care of [address] Baxter is planning to intervene on Wednesday I will let her have diet tonight and give her DVT prophylaxis Full code Cardiac diet Bates catheter in place March 27, 2024. CTA of the chest negative for PE. Lower extremity Doppler negative. D-dimer likely elevated related to acute injury. Echocardiogram was ordered, currently pending. Plan for or intervention tomorrow. No contraindication from medicine standpoint currently to proceed with surgery tomorrow. Pain is currently well- controlled. March 28, 2024 Status post right hemiarthroplasty today. Pain is controlled. Continue postop monitoring Attestations 2 Medical Necessity Statement*: s/p hemiarthroplasty today Coding Level of Care Code Acute Code for Chg Fwd Diagnoses Closed hip fracture S72.009A Hypertension I10
--- NOTE | 2024-03-28 16:12 | P.OP_ITS ---
Operative Report Date of procedure: March 28, 2024 Pre-op diagnosis: Right subcapital hip fracture Post-op diagnosis: Right subcapital hip fracture Post-op findings: 100% displaced right subcapital hip fracture Procedure done: Right bipolar hip hemiarthroplasty Implants: The [place] insignia hip system with a size 6 high offset insignia stem with a +8 offset by 28 mm outer diameter femoral head and a universal bipolar head component size 46 outer diameter by 28 mm inner diameter Specimens removed/disposition: Femoral head, disposed of Pathology: None Surgeon: Bernice Bee MD Platform Material Handler Manager: Cata Presley, nurse practitioner, who services were required for retraction, exposure, closure, and completion of the surgical procedure Anesthesia: Spinal (ASA 2) Estimated blood loss (mL): 290 IV fluids (mL): 1,500 Urine output (mL): 400 Complications: None Findings: 100% displaced subcapital hip fracture right hip. The hip was stable at 90 degrees of flexion with 40 degrees of internal rotation. It was stable to toe hang and external rotation. Condition: stable Disposition: PACU (Then return to floor for postoperative rehabilitation and pain management) Brief History: Omayra Alfredo is a 79 year old female who was brought to the emergency department by ambulance. She had right hip pain after a fall in her kitchen when she slipped on water and fell directly onto her right hip. She had severe pain in the right hip and inability to ambulate. The leg was also shortened and externally rotated. She was neurologically intact after the fall. She denied any reason for the fall other than a slip in water. Upon presentation and x- ray, the patient was found to have a displaced subcapital right hip fracture. Procedure: The patient was brought to the operating theater, and after undergoing adequate spinal anesthesia, ASA 2, she was transferred to the operating room table. The patient was placed in the full lateral position and held in place with the pegboard. Patient's right lower extremity was draped free and was subsequently prepped and further draped free. A surgical pause was performed prior to commencement of the surgical procedure. During the surgical pause, we confirmed the site and side of surgery as well as availability of equipment. Additionally, we confirmed preoperative surgical markings as well as preoperative antibiotic, Ancef 2 g. X-rays are also reviewed during this time. Following the surgical pause, an incision was made centering over the greater trochanter continuing proximally and distally as necessary to allow access to the hip joint. Dissection continued through skin and soft tissue using scalpel. Hemostasis was obtained using electrocautery. Tensor fascia jennifer was identified and incised longitudinally. Sciatic nerve was identified and protected throughout the surgical procedure. A Charnley U retractor was placed with care being taken to protect the sciatic nerve during placement. The hip was internally rotated. Piriformis muscle was then identified, tagged, and subsequently incised from the posterior aspect of the hip joint. The remaining short external rotators were also incised. These were then elevated off the capsule, and the capsule was entered in a T-type fashion. Each side of the capsule was then tagged. The proximal femur was brought into an appropriate position, and the femoral neck osteotomy was accomplished. This was in appropriate position for placement of the prosthetic component. Femoral head was then removed from the acetabulum utilizing a corkscrew. It was subsequently measured. The appropriate size trial was chosen. This was a size 46 mm universal bipolar head component. Size 46 mm trial fit nicely. A 47 mm was also trialed but seemed to large, and the 45 mm seemed too small. Therefore size 46 mm was the chosen size for final implantation. Femoral colorist photography was then placed, and attention was directed to the proximal femur. Initially, the proximal femur was addressed with a box chisel, and this was followed by a canal finder and subsequently broaches. The hip was broached to a size 6. Size 6 broach was noted to fit nicely and have good fit and fill. Therefore this was to be the chosen component. Trial reduction was accomplished with a 46 mm universal head bipolar component and initially a +0 mm femoral head with a standard offset hip stem. The reduction was very easy, and the leg lengths were felt to be in appropriate. We increased to a size +4 mm and subsequently a +8 mm. This was due to lack of significant stability of the stem. We then went to a high offset hip stem, size 6, with a 46 mm universal head bipolar component and a +8 mm offset by 28 mm outer diameter femoral head. With this, the above-noted stabilities were accomplished. This was felt to be appropriate and therefore trial components were removed and the hip was irrigated. Acetabulum was evaluated for any loose bodies or other soft tissues requiring resection. We then prepared for implantation. The size 6 high offset insignia hip stem was impacted into position. This was placed without difficulty. Onto this was placed the construct of the universal head bipolar component size 46 mm outer diameter by 26 mm inner diameter, and the 28 mm diameter +8 offset femoral head. This was placed onto the trunnion of the femoral component. It was impacted into position and pulled upon to assure that there was no dissociation. Once again the hip was irrigated and suctioned dry and was reduced. We then irrigated the hip further with 20 mL of Betadine mixed into 500 mL of normal saline. This was allowed to remain in the wound for approximately 3 minutes. It was then suctioned dry and irrigated with normal saline. This was suctioned dry again and closure was accomplished with 0 Vicryl in the capsular tissues followed by reattachment of the piriformis with 0 Vicryl. Additionally, the tensor was closed with 0 Vicryl in an interrupted fashion followed by #1 strata fix. Subcutaneous tissues were closed with a combination of 0 Vicryl and 2-0 Monocryl strata fix. The skin was closed with 3-0 Monocryl strata fix. This was followed by Gely brown and Mary. The patient was returned the Recovery Room in satisfactory condition. There were no complications. The patient will be discharged to the floor for postoperative rehabilitation and pain management. Related Problem List Diagnoses (1) Subcapital fracture of right hip:
[2024-03-28] MEDS: mupirocin oint 22 gm 1 APPLIC NASAL (16:19)
[2024-03-28] MEDS: calcium carbonate 500 mg Chew Tablet 1000 MG PO (16:19)
[2024-03-28] MEDS: chlorhexidine gluconate 0.12% Btl 473 mL 30 ML MUCOUS MEM ×2 (16:19→21:10)
[2024-03-28] MEDS: iron polysaccharide complex 150 mg Capsule PO (16:20)
[2024-03-28] MEDS: CELEcoxib 200 mg Capsule PO (16:20)
[2024-03-28] MEDS: sennosides-docusate Tablet 2 TAB PO (16:20)
[2024-03-28] MEDS: tranexamic acid 1,000 MG/100 ML PREMIX 600 MG IV (16:38)
[2024-03-29] VITALS (11 sets, daily range): BP systolic 89–134; BP diastolic 49–72; PULSE 62–81; RESP 15–18; TEMP 36.4–37.1; O2SAT 91–96; BMI 36.2
[2024-03-29] MEDS: oxyCODONE 5 mg IR Tab/Cap PO ×2 (01:29→13:11)
[2024-03-29] MEDS: CELEcoxib 200 mg Capsule PO ×2 (05:31→17:50)
[2024-03-29] MEDS: ceFAZolin 2,000 mg SDV 2000 MG IVP ×2 (05:31→11:21)
[2024-03-29 05:33] LABS: Basophils % 0.4 %; Eosinophils # 0.1 10^3/uL (0.0-0.8); Eosinophils % 0.9 %; Hematocrit 35.7 % (36-47); Lymphocytes # 1.3 10^3/uL (0.8-4.8); Lymphocytes % 16.3 %; Mean Corpuscular HGB Conc 31.4 g/dL (30-55); Mean Corpuscular Hemoglobin 27.5 pg (27-33); Mean Corpuscular Volume 87.7 fl (85-98); Monocytes # 0.7 10^3/uL (0.2-0.9); Neutrophils # 5.68 10^3/uL (1.8-7.7); Nucleated Red Blood Cells % 0 %; Platelet Count 189 10^3/cmm (157-399); Red Blood Count 4.07 10^6/uL (3.85-5.65); Red Cell Distribution Width 13.7 % (12.1-15.1); White Blood Count 7.78 10^3/uL (3.29-11.43)
[2024-03-29 05:58] LABS: Alanine Aminotransferase 16 U/L (0-33); Alkaline Phosphatase 149 U/L (35-105); Anion Gap 12.7 (5-19); Aspartate Amino Transferase 23 U/L (0-32); Blood Urea Nitrogen 12 mg/dL (8-23); Calcium 8.4 mg/dL (8.5-10.5); Carbon Dioxide 26 mmol/L (22-29); Chloride 104 mmol/L (98-107); Creatinine Clr Calc Pharmacy 67.4791; Globulin 2.3 g/dL (1.3-4.6); Glucose 123 mg/dL (65-115); Osmolality Calculated 289 mOsm/kg (285-295); Potassium 3.7 mmol/L (3.5-5.1); Sodium 139 mmol/L (136-145); Total Bilirubin 1.4 mg/dL (0.15-1.2); Total Protein 5.3 g/dL (6.6-8.7)
[2024-03-29] MEDS: aspirin 325 mg EC Tablet PO (08:49)
[2024-03-29] MEDS: amlodipine 5 mg Tablet PO (08:49)
[2024-03-29] MEDS: enoxaparin 40 mg/0.4 mL Syringe SUBCUT (08:49)
[2024-03-29] MEDS: calcium carbonate 500 mg Chew Tablet 1000 MG PO (08:50)
[2024-03-29] MEDS: iron polysaccharide complex 150 mg Capsule PO ×2 (08:50→17:49)
[2024-03-29] MEDS: chlorhexidine gluconate 0.12% Btl 473 mL 30 ML MUCOUS MEM ×4 (08:50→22:00)
[2024-03-29] MEDS: sennosides-docusate Tablet 1 TAB PO (08:50)
[2024-03-29] MEDS: mupirocin oint 22 gm 1 APPLIC NASAL ×2 (08:50→17:51)
[2024-03-29] MEDS: multivitamin therapeutic Tablet 1 TAB PO (08:50)
[2024-03-29] MEDS: cholecalciferol (vitamin D3) 1,000 unit Tablet 1000 UNIT PO (08:50)
[2024-03-29] MEDS: pantoprazole DR 40 mg Tablet PO (08:50)
[2024-03-29] MEDS: acetaminophen 1,000 MG/100 ML PIGGYBACK 400 MG IV (08:51)
--- NOTE | 2024-03-29 09:41 | PC.CHAP ---
Pastoral Care Encounter/Spiritual Assessment Type of Contact [] Declined social work program coordinator visit [] Patient/Family/Request visit [] Outpatient visit [] Follow-up visit [] Physician referral [] Code/Alert [x] Routine visit [] Staff referral [] Actively dying [] Patient sleeping [] Family support [] [] Out of room [] Palliative care [] [] Receiving care in room [] Pre-surgical visit [] Trauma [] Long length of stay [] ICU visit [] Other: Relational/Emotional Strength [x] Patient feels connected with others/family/visitors/staff [] Distress [] Loneliness/isolation [] Abandonment Spirituality of Patient [x] Person of Margret [] Attends Restorationist of their Margret [x] Believes in Prayer [] Reads Bible or Yazidi materials [] There are Spiritual issues to be addressed Academic Success Coordinator Interventions [x] Prayer [x] Active listening [x] Non-anxious presence [x] Spiritual/emotional support [] Crisis/trauma care [] Spiritual counseling [] Bereavement support [] Provided bereavement packet [] Provided Bible/devotional materials [] Provided toy/stuffed animal, coloring book to patient or family member [] Provided Communion [] Anointing/[place] [] Salvation [x] Completed spiritual assessment [] Other: Impact on Illness or Injury [] Angry [] Fearful [] Anxious [] Often cries [] Exhaustion [] Unable to work [] Unable to attend cheondoism [] Unable to walk/stand [] Unable to read [] Unable to drive [] Unable to eat/drink [] Unable to sleep [] Unable to be with family [] Patient intubated [] Other: Summary Time spent with patient 10 min
--- NOTE | 2024-03-29 12:12 | PC.SOCIAL ---
IMM updated Updated pt on IMM. No questions voiced. Provided pt a copy. Initialed, dated, & timed a copy & placed in chart.
--- NOTE | 2024-03-29 13:38 | PM.PN ---
Subjective Subjective: Patient states she has almost no pain. She is very pleased. She would like to be able to be discharged home tomorrow Medications: Reviewed: Yes Vitals/I&O/Wt Last Vital Signs Temp 97.6 F 03/29/24 12:00 Pulse 76 03/29/24 12:00 Resp 18 03/29/24 13:11 BP 89/51 03/29/24 12:00 Pulse Ox 96 03/29/24 12:00 O2 Del Method Room Air 03/29/24 12:00 03/28/24 03/29/24 03/29/24 22:59 06:59 14:59 Intake Total 1023 / 1673 100 / 1773 490 / 490 Output Total 1100 / 1700 400 / 2100 Balance -77 / -27 -300 / -327 490 / 490 Weight last 48 hrs Weight 218 lb Weight 202 lb 14.4 oz Physical Exam Const: COMMON NORMALS: no acute distress, average body habitus, patient oriented x3 and alert GENERAL APPEARANCE: cooperative and comfortable ORIENTATION/CONSCIOUSNESS: Yes awake HENMT: COMMON NORMALS: normocephalic and atraumatic HEAD & SCALP: normocephalic and atraumatic Eye: GENERAL EYE: appearance normal, both eyes and all related structures Chest: COMMONS NORMALS: normal inspection of the chest Resp: COMMON NORMALS: normal respiratory effort EFFORT & INSPECTION: Yes able to speak in complete sentences and Yes symmetric chest movement Extremity: RIGHT LOWER EXTREMITY: Yes hip joint (Patient remains neurologically intact.) Right hip: Yes inspection (No significant bruising.), Yes ROM (Not evaluated, but patient has been ambulating with physical therapy) and Yes neurovascular exam (Intact distally.) Neuro: COMMON NORMALS: patient oriented x3 SENSORIUM/ORIENTATION: Yes alert Psych: COMMON NORMALS: mental status grossly normal APPEARANCE: Yes grossly normal ATTITUDE: Yes calm and Yes engaged ATTENTION/CONCENTRATION: Yes attention grossly intact Skin: COMMON NORMALS: no rashes or lesions noted GENERAL SKIN EXAM: no rashes or lesions noted Urinary Catheter Management: Bates: Cath Placed During This Visit: yes, but has since been removed by the nurse Reason for Continuing Indwelling Catheter: Decision to DC Catheter Urinary Catheter Date of Insertion: 03/26/24 Urinary Catheter Time of Insertion: 18:59 Date Urinary Catheter Removed: 03/29/24 Time Urinary Catheter Discontinued: 05:47 Data 03/29/24 05:16 03/29/24 05:16 A&P Assessment and plan (1) Subcapital fracture of right hip: Patient presented to the emergency department after slip and fall in water at home. At time of presentation to the emergency department, she was unable to ambulate and complained of significant right hip pain. The leg was shortened and externally rotated consistent with hip fracture. I have personally reviewed the imaging studies and these demonstrate a displaced shortened angulated right subcapital hip fracture. Patient was seen by cardiology and evaluated. Hospitalist admitted to optimize the patient for surgical intervention. Patient underwent left hip hemiarthroplasty yesterday. She is up in her room with physical therapy, and she notes that she feels that she could be successful going home. They are in agreement with this. She would need 1-2 more days of therapy. She will be weightbearing as tolerated with posterior hip precautions. Qualifiers: Encounter type: initial encounter Fracture type: closed Qualified Code(s): S72.011A - Unspecified intracapsular fracture of right femur, initial encounter for closed fracture Attestations Medical Necessity Statement*: Per hospitalist team Coding Level of Care Code Acute Code for [facility] Fwd Diagnoses Closed subcapital fracture of right femur, initial encounter S72.011A Encounter type: initial encounter Fracture type: closed
--- NOTE | 2024-03-29 14:10 | P.PN_ITS ---
Subjective 2 Subjective: Feels well overall. States she has no pain currently. Medications: Reviewed: Yes Vitals/I&O/Wt Last Vital Signs Temp 97.6 F 03/29/24 12:00 Pulse 76 03/29/24 12:00 Resp 18 03/29/24 13:11 BP 89/51 03/29/24 12:00 Pulse Ox 96 03/29/24 12:00 O2 Del Method Room Air 03/29/24 12:00 03/28/24 03/29/24 03/29/24 22:59 06:59 14:59 Intake Total 1023 / 1673 100 / 1773 490 / 490 Output Total 1100 / 1700 400 / 2100 Balance -77 / -27 -300 / -327 490 / 490 Weight last 48 hrs Weight 98.883 kg Weight 92.034 kg Physical Exam 2 Narrative: General: No acute distress, AO x3 HEENT: PERRLA, pupils bilaterally equal and reactive, pallors not present Chest: Normal vesicular breath sounds, no added sounds, equal good air entry bilaterally CVS: S1-S2 regular, no murmurs, no tachycardia, no gallops, no rubs Abdomen: Soft, nontender, no organomegaly, bowel sounds present Neuro: No focal deficits, no facial deformity, AO x3, power 5/5 in all limbs Urinary Catheter Management: Bates: Cath Placed During This Visit: yes, but has since been removed by the nurse Reason for Continuing Indwelling Catheter: Decision to DC Catheter Urinary Catheter Date of Insertion: 03/26/24 Urinary Catheter Time of Insertion: 18:59 Date Urinary Catheter Removed: 03/29/24 Time Urinary Catheter Discontinued: 05:47 Data 03/29/24 05:16 03/29/24 05:16 A&P Assessment and plan (1) Closed hip fracture: (2) Hypertension: Plan Right hip fracture Ground-level fall Mechanical fall Patient has not seen a PCP in 6 years Add Motifene for hypertension Check D-dimer hemoglobin A1c, B12 and TSH Will request echo Patient is physically active stating that she takes care of [address] Baxter is planning to intervene on Wednesday I will let her have diet tonight and give her DVT prophylaxis Full code Cardiac diet Bates catheter in place March 27, 2024. CTA of the chest negative for PE. Lower extremity Doppler negative. D-dimer likely elevated related to acute injury. Echocardiogram was ordered, currently pending. Plan for or intervention tomorrow. No contraindication from medicine standpoint currently to proceed with surgery tomorrow. Pain is currently well- controlled. March 28, 2024 Status post right hemiarthroplasty today. Pain is controlled. Continue postop monitoring March 29, 2024 Reports she is not currently in pain. Participated with physical therapy. Was able to ambulate in the room with a walker today. Hemoglobin is stable at 11. Appropriate disposition planning ongoing. Plan discharge home with home health versus outpatient therapy. Attestations 2 Medical Necessity Statement*: post op care, disposition planning Coding Level of Care Code Acute Code for Chg Fwd Diagnoses Closed hip fracture S72.009A Hypertension I10
[2024-03-29] MEDS: sennosides-docusate Tablet 2 TAB PO (17:50)
[2024-03-29] MEDS: acetaminophen 500 mg Tablet 1000 MG PO (17:50)
[2024-03-30] MEDS: acetaminophen 500 mg Tablet 1000 MG PO ×2 (02:02→09:57)
[2024-03-30 03:59] VITALS: BP 152/73; PULSE 76; RESP 18; TEMP 36.5; O2SAT 94
[2024-03-30 07:46] VITALS: BP 122/68; PULSE 75; RESP 15; TEMP 36.8; O2SAT 94
[2024-03-30 08:39] VITALS: PULSE 89; RESP 18; O2SAT 95
[2024-03-30] MEDS: multivitamin therapeutic Tablet 1 TAB PO (09:57)
[2024-03-30] MEDS: iron polysaccharide complex 150 mg Capsule PO (09:57)
[2024-03-30] MEDS: cholecalciferol (vitamin D3) 1,000 unit Tablet 1000 UNIT PO (09:57)
[2024-03-30] MEDS: pantoprazole DR 40 mg Tablet PO (09:57)
[2024-03-30] MEDS: enoxaparin 40 mg/0.4 mL Syringe SUBCUT (09:58)
[2024-03-30] MEDS: aspirin 325 mg EC Tablet PO (09:58)
[2024-03-30 11:16] VITALS: BP 104/65; PULSE 72; RESP 16; TEMP 36.6; O2SAT 96
--- NOTE | 2024-03-30 11:18 | PM.DCS ---
Discharge Providers Date of Admission: 03/26/24 18:04 Date of Discharge: March 30, 2024 Attending Provider at Admission: Michelle Grider MD Attending Provider at Discharge: Emy Singh MD Diagnoses at Discharge Discharge Diagnosis (1) Subcapital fracture of right hip: Status: Acute Qualifiers: Encounter type: initial encounter Fracture type: closed Qualified Code(s): S72.011A - Unspecified intracapsular fracture of right femur, initial encounter for closed fracture Reason for Visit Reason for Visit: right hip pain s/p fall Hospital Course Hospital Course 79-year-old lady with presented to the hospital with chief complaints of having fallen at home resulting in a hip fracture. Upon arrival her D-dimer was elevated. CTA of the chest and lower extremity Dopplers were negative. She underwent right hip hemiarthroplasty on March 28, 2024. Her pain has been well-controlled postoperatively. Hemoglobin is stable. She did well overall and tolerated the procedure. She participated with physical therapy. She is being discharged today in stable state with arrangements for home health. Patient needs to follow-up with primary care physician on Wednesday following which home health services will be started Physical Exam Narrative: General: No acute distress, AO x3 HEENT: PERRLA, pupils bilaterally equal and reactive, pallors not present Chest: Normal vesicular breath sounds, no added sounds, equal good air entry bilaterally CVS: S1-S2 regular, no murmurs, no tachycardia, no gallops, no rubs Abdomen: Soft, nontender, no organomegaly, bowel sounds present Neuro: No focal deficits, no facial deformity, AO x3, power 5/5 in all limbs Urinary Catheter Management: Bates: Cath Placed During This Visit: yes, but has since been removed by the nurse Reason for Continuing Indwelling Catheter: Decision to DC Catheter Urinary Catheter Date of Insertion: 03/26/24 Urinary Catheter Time of Insertion: 18:59 Date Urinary Catheter Removed: 03/29/24 Time Urinary Catheter Discontinued: 05:47 Discharge Data Studies Completed and Pending Completed Studies During Hospitalization Category Date Time Status CTA PE [CT angio chest PE protcl [id number]] Stat Cat Scan 03/26/24 21:38 Completed XR chest 1V [id number] Stat Exams 03/26/24 17:35 Completed XR hip RT 2-3V wo/w pel* [id number] Stat Exams 03/26/24 16:13 Completed XR pelvis 1-2V* [id number] Routine Exams 03/28/24 14:20 [place] [id number] Routine Ultrasound 03/27/24 21:38 Completed CV. echo complete* [id number] Routine Ultrasound 03/27/24 19:30 Completed Radiology Impressions Hip/Pelvis X-Ray 03/26/24 16:13 IMPRESSION: Subcapital right hip fracture with foreshortening. Chest X-Ray 03/26/24 17:35 IMPRESSION: No acute findings. Chest CTA 03/26/24 21:38 IMPRESSION: No evidence of pulmonary embolism. Pelvis X-Ray 03/28/24 14:20 IMPRESSION: 1. Complete right hip arthroplasty without complications. 2. Expected postsurgical soft tissue changes. Laboratory Results WBC 7.78 10^3/uL (3.29-11.43) 03/29/24 05:16 RBC 4.07 10^6/uL (3.85-5.65) 03/29/24 05:16 Hgb 11.20 g/dL (11.27-16.99) L 03/29/24 05:16 Hct 35.7 % (36-47) L 03/29/24 05:16 MCV 87.7 fl (85-98) 03/29/24 05:16 MCH 27.5 pg (27-33) 03/29/24 05:16 MCHC 31.4 g/dL (30-55) 03/29/24 05:16 RDW 13.7 % (12.1-15.1) 03/29/24 05:16 Plt Count 189 10^3/cmm (157-399) 03/29/24 05:16 MPV 9.0 fL (7.4-10.4) 03/29/24 05:16 Neut % (Auto) 73.0 % 03/29/24 05:16 Lymph % (Auto) 16.3 % 03/29/24 05:16 [place] % (Auto) 9.0 % 03/29/24 05:16 Eos % (Auto) 0.9 % 03/29/24 05:16 Baso % (Auto) 0.4 % 03/29/24 05:16 Neut # (Auto) 5.68 10^3/uL (1.8-7.7) 03/29/24 05:16 Lymph # (Auto) 1.3 10^3/uL (0.8-4.8) 03/29/24 05:16 [place] # (Auto) 0.7 10^3/uL (0.2-0.9) 03/29/24 05:16 Eos # (Auto) 0.1 10^3/uL (0.0-0.8) 03/29/24 05:16 Baso # (Auto) 0.0 10^3/uL (0.0-0.1) 03/29/24 05:16 Nucleated RBC % (auto) 0 % 03/29/24 05:16 Nucleated RBCs # 0.0 /100WBC 03/29/24 05:16 PT 14.20 SECONDS (12.1-14.9) 03/26/24 19:17 INR 1.02 (0.8-1.2) 03/26/24 19:17 APTT 26.6 SECONDS (23.9-36.7) 03/26/24 19:17 D-Dimer 12.48 ug/mLFEU (0-0.59) H 03/26/24 19:17 Sodium 139 mmol/L (136-145) 03/29/24 05:16 Potassium 3.7 mmol/L (3.5-5.1) 03/29/24 05:16 Chloride 104 mmol/L (98-107) 03/29/24 05:16 Carbon Dioxide 26 mmol/L (22-29) 03/29/24 05:16 Anion Gap 12.7 (5-19) 03/29/24 05:16 BUN 12 mg/dL (8-23) 03/29/24 05:16 Creatinine 0.6 mg/dL (0.5-0.9) 03/29/24 05:16 GFR Calculation Not Reportable 03/29/24 05:16 Glucose 123 mg/dL (65-115) H 03/29/24 05:16 Estimat Average Glucose 108 03/26/24 19:17 Hemoglobin A1c 5.4 % (4.0-6.0) 03/26/24 19:17 Calculated Osmolality 289 mOsm/kg (285-295) 03/29/24 05:16 Calcium 8.4 mg/dL (8.5-10.5) L 03/29/24 05:16 Magnesium 2.1 mg/dL (1.7-2.3) 03/27/24 03:11 Total Bilirubin 1.4 mg/dL (0.15-1.2) H 03/29/24 05:16 AST 23 U/L (0-32) 03/29/24 05:16 ALT 16 U/L (0-33) 03/29/24 05:16 Alkaline Phosphatase 149 U/L (35-105) H 03/29/24 05:16 Total Protein 5.3 g/dL (6.6-8.7) L 03/29/24 05:16 Albumin 3.0 g/dL (3.5-5.2) L 03/29/24 05:16 Globulin 2.3 g/dL (1.3-4.6) 03/29/24 05:16 Vitamin B12 203 pg/mL (232-1245) L 03/26/24 19:17 TSH 3.12 uIU/mL (0.27-4.20) 03/26/24 19:17 Urine Color Dark yellow (Yellow) A 03/26/24 18:15 Urine Appearance Clear (CLEAR) 03/26/24 18:15 Urine pH 5.0 (5-7) 03/26/24 18:15 Ur Specific Sells 1.030 (1.005-1.030) 03/26/24 18:15 Urine Protein Trace (Negative) A 03/26/24 18:15 Urine Glucose (UA) Negative (Normal) 03/26/24 18:15 Urine Ketones Trace (Negative) 03/26/24 18:15 Urine Blood Negative (Negative) 03/26/24 18:15 Urine Nitrate Negative (Negative) 03/26/24 18:15 Urine Bilirubin Negative (Negative) 03/26/24 18:15 Urine Urobilinogen 1.0 mg/dL (Negative) 03/26/24 18:15 Ur Leukocyte Esterase Negative (Negative) 03/26/24 18:15 Urine RBC 0-2 /hpf (0-2) 03/26/24 18:15 Urine WBC 0-5 /hpf (0-5) 03/26/24 18:15 Ur Squamous Epith Cells 0-5 /hpf (0-5) 03/26/24 18:15 Amorphous Sediment Trace /hpf 03/26/24 18:15 Urine Bacteria None seen /hpf (NONE) 03/26/24 18:15 Hyaline Casts 9.91 /lpf 03/26/24 18:15 Urine Mucus 3+ /hpf 03/26/24 18:15 Vitals Last Vital Signs Temp 98.3 F 03/30/24 07:46 Pulse 89 03/30/24 08:39 Resp 18 03/30/24 08:39 BP 122/68 03/30/24 07:46 Pulse Ox 95 03/30/24 08:39 O2 Del Method Room Air 03/30/24 08:39 Discharge Plan Discharge Patient Disposition: Home Health Service Condition: Stable Prescriptions: New acetaminophen 500 mg Tablet 500 mg PO Q4H PRN (Reason: fever) Qty: 0 0RF pantoprazole 40 mg Tablet,Delayed Release (Dr/Ec) 40 mg PO DAILY 30 Days Qty: 30 0RF celecoxib 200 mg Capsule 200 mg PO Q12H PRN (Reason: pain) 5 Days Qty: 10 0RF polysaccharide iron complex [Ferrex 150] 150 mg iron Capsule 150 mg PO BIDWM 30 Days Qty: 30 0RF aspirin 325 mg Tablet,Delayed Release (Dr/Ec) 325 mg PO DAILY 30 Days Qty: 30 0RF No Action No Known Home Medications Discharge Orders: Discharge Order (Routine); Ordered 03/30/24 Ordered By: Emy Singh Other Ambulatory Orders: DME: [facility] (Order) Location: None Selected Ordered By: Bernice Bee Referrals: [facility] [Other] (Call this number to get In Home Services arranged. They will ask you questions & based off you answers, you are given points. You have to have a certain number of points to qualify. ) Melvin William MD [Referring] - 04/03/24 9:00 am Bernice Bee MD [Physician] - 2 weeks (We have notified your physician's clinic of the need for a follow-up appointment to be scheduled. If you have not heard from them within the next 2 business days, please call them directly. ) Discharge Diet: Usual diet Discharge Activity: As per PT/OT instructions Patient Instructions: Acute Wound Care (DC), Opioid Safety, Post Anesthesia Care Discharge Attestations Time Spent in Discharge Care*: greater than 30 min Quality Metrics Clinical Quality Measures [ No reported AMI, CVA or VTE this stay] Coding Level of Care Code Acute Code for Chg Fwd Diagnoses Closed subcapital fracture of right femur, initial encounter S72.011A Encounter type: initial encounter Fracture type: closed
[2024-03-30] MEDS: HYDROcodone-acetaminophen 5-325 mg Tablet 1 TAB PO (12:23)
--- NOTE | 2024-03-30 12:29 | PC.NURSE ---
THIS EMERGENCY SPILL RESPONSE TECHNICIAN ASSITED HER BACK TO BED AND SHE ASKED FOR PAIN MEDICATION S MEDS GIVEN. PATIENT HAS DISCHARGE ORDERS SO IVS REMOVED WITH CATH INTACT.
--- NOTE | 2024-03-30 13:22 | P.PN_ITS ---
Subjective 2 Subjective: Patient states she has almost no pain. She is very pleased. Plans are made for her discharge to home with home health. She will have to have a primary care physician in place for this to occur, and she has an appointment with her primary care to establish care on April 03. Medications: Reviewed: Yes Vitals/I&O/Wt Last Vital Signs Temp 97.9 F 03/30/24 11:16 Pulse 72 03/30/24 11:16 Resp 16 03/30/24 11:16 BP 104/65 03/30/24 11:16 Pulse Ox 96 03/30/24 11:16 O2 Del Method Room Air 03/30/24 11:16 03/29/24 03/30/24 03/30/24 22:59 06:59 14:59 Intake Total 480 / 970 480 / 1450 720 / 720 Output Total 400 / 400 Balance 80 / 570 480 / 1050 720 / 720 Weight last 48 hrs Weight 216 lb 8 oz Weight 218 lb Physical Exam 2 Const: COMMON NORMALS: no acute distress, average body habitus, patient oriented x3 and alert GENERAL APPEARANCE: cooperative and comfortable O RIENTATION/CONSCIOUSNESS: Yes awake HENMT: COMMON NORMALS: normocephalic and atraumatic HEAD & SCALP: n ormocephalic and atraumatic Eye: GENERAL EYE: appearance normal, both eyes and all related structures Chest: COMMONS NORMALS: normal inspection of the chest Resp: COMMON NORMALS: normal respiratory effort EFFORT & INSPECTION: Yes able to speak in complete sentences and Yes symmetric chest movement Extremity: RIGHT LOWER EXTREMITY: Yes hip joint (Dressing is dry and intact.) Right hip: Yes palpation (No significant thigh swelling.), Yes ROM (Not evaluated.) and Yes neurovascular exam (No evidence of DVT.) Neuro: COMMON NORMALS: patient oriented x3 SENSORIUM/ORIENTATION: Yes alert Psych: COMMON NORMALS: mental status grossly normal APPEARANCE: Yes grossly normal ATTITUDE: Yes calm and Yes engaged ATTENTION/CONCENTRATION: Yes attention grossly intact Skin: COMMON NORMALS: no rashes or lesions noted GENERAL SKIN EXAM: no rashes or lesions noted Urinary Catheter Management: Bates: Cath Placed During This Visit: yes, but has since been removed by the nurse Reason for Continuing Indwelling Catheter: Decision to DC Catheter Urinary Catheter Date of Insertion: 03/26/24 Urinary Catheter Time of Insertion: 18:59 Date Urinary Catheter Removed: 03/29/24 Time Urinary Catheter Discontinued: 05:47 Data 03/29/24 05:16 03/29/24 05:16 A&P Assessment and plan (1) Subcapital fracture of right hip: Patient presented to the emergency department after slip and fall in water at home. At time of presentation to the emergency department, she was unable to ambulate and complained of significant right hip pain. The leg was shortened and externally rotated consistent with hip fracture. I have personally reviewed the imaging studies and these demonstrate a displaced shortened angulated right subcapital hip fracture. Patient was seen by cardiology and evaluated. Hospitalist admitted to optimize the patient for surgical intervention. Patient underwent left hip hemiarthroplasty uneventfully. Initially, it was felt that she would require nursing home, however, she has done well with therapy and has minimal complaints of pain. Therefore, we will plan discharge to home. This is planned for today. Qualifiers: Encounter type: initial encounter Fracture type: closed Qualified Code(s): S72.011A - Unspecified intracapsular fracture of right femur, initial encounter for closed fracture Attestations 2 Medical Necessity Statement*: Per hospitalist team Coding Level of Care Code Acute Code for Chg Fwd Diagnoses Closed subcapital fracture of right femur, initial encounter S72.011A Encounter type: initial encounter Fracture type: closed
[2024-03-30 14:40] VITALS: BP 104/65; PULSE 72; RESP 16; TEMP 36.6; O2SAT 96
== END 2024-03-30 14:41 | disposition home health service (06) | DRG 522 ==
LOC: ER 19:09 → MEDSURG 20:26
PROVIDERS: Internal Medicine; Specialist; Admitting Provider Internal Medicine; Emergency Provider Emergency Medicine; Visit Provider Student in an Organized Health Care Education/Training Program
PROC: 0SRR01Z Replacement of Right Hip Joint, Femoral Surface with Metal Synthetic Substitute, Open Approach (ICD-10-PCS; CPT 27125; principal; 2024-03-28 10:35)
DX: S72.011A Unspecified intracapsular fracture of right femur, initial encounter for closed fracture (principal); W01.0XXA Fall on same level from slipping, tripping and stumbling without subsequent striking against object, initial encounter; E53.8 Deficiency of other specified B group vitamins; M54.50 Low back pain, unspecified; I10 Essential (primary) hypertension; Z79.82 Long term (current) use of aspirin; Z91.014 Allergy to mammalian meats; Z88.5 Allergy status to narcotic agent
CPT/HCPCS: 36415; 51702; 71045; 71275; 72170; 73502; 80048; 80053; 81001; 82607; 83036; 83735; 84443; 85025; 85378; 85610; 85730; 93005; 93306; 93970; 96372; 96374; 96375; 97110; 97116; 97161; 97167; 97530; 97535; 99285; C1713; C1776; C9290; J0131; J0690; J1171; J1650; J2270; J2405; J2470; J2704; J3370; J3420; J3490; J7030

== ENCOUNTER → 2024-04-12 09:52 | Outpatient (BNVA) | payer MEDICAID, SELFPAY | PROVIDERS: Visit Provider Nurse Practitioner | DX: Z98.890 Other specified postprocedural states; Z96.641 Presence of right artificial hip joint | CPT/HCPCS: 73502; 99024 ==

== ENCOUNTER → 2024-05-24 09:46 | Outpatient (BNVA) | payer MEDICAID, SELFPAY | PROVIDERS: Visit Provider Nurse Practitioner | DX: Z96.641 Presence of right artificial hip joint (principal); M54.50 Low back pain, unspecified | CPT/HCPCS: 73502; 99213 ==

== ENCOUNTER → 2024-06-01 13:31 | Outpatient (BNVA) | payer MEDICAID, SELFPAY | PROVIDERS: Visit Provider Orthopaedic Surgery | DX: M54.50 Low back pain, unspecified (principal); M48.062 Spinal stenosis, lumbar region with neurogenic claudication | CPT/HCPCS: 72110; 99204 ==